=== PATIENT | female | born 1955 | race Caucasian/White ===

== ENCOUNTER 2017-09-08 10:23 | Emergency (ER) | payer BC, OTHER ==
[2017-09-08 10:53] LABS: Bilirubin Small (Negative); Blood, Urine Trace (Negative); Clarity Slightly Cloudy (Clear); Glucose, Urine (Dipstick) Negative (Negative); Leukocyte Negative (Negative); Nitrite Negative (Negative); Protein, Urine (Dipstick) Trace mg/dL (Neg-Trace); Specific Gravity, Urine 1.015 (1.005-1.030); pH, Urine 6.5 (5.0-9.0)
[2017-09-08] MEDS ORDERED: Ondansetron HCl/PF 4 MG/2 ML Vial ONE (11:04)
[2017-09-08] MEDS ORDERED: Famotidine/PF 20 mg/2ml Vial ONE (11:04)
[2017-09-08 11:07] LABS: Band 1 % (5-11); Eosinophils 2 % (0-10); Hemoglobin 13.3 g/dL (12.0-16.0); Lymphocytes 27 % (21-51); MDiff Complete? YES; Mean Corpuscular HGB CONC 32.3 g/dL (32.0-36.0); Mean Corpuscular Hemoglobin 28.5 pg (27.0-31.0); Mean Corpuscular Volume 88.2 fl (81.0-99.0); Mean Platelet Volume 6.1 fL (7.4-10.4); Monocytes 5 % (0-10); Neutrophil 65 % (42-75); PLT Morphology Comment Appears Increased; Platelet Count 495 thou/uL (130-400); RBC Distribution Width 12.2 % (11.5-14.5); RBC Morphology Normal; Red Blood Cell (RBC) Count 4.68 mill/uL (4.20-5.40); White Blood Cell (WBC) Count 11.5 thou/uL (4.8-10.8)
[2017-09-08 11:08] LABS: Bacteria/HPF Rare-Few HPF (None Seen); WBC/HPF 0-3 HPF (0-3)
[2017-09-08 11:11] LABS: ALT (SGPT) 7 U/L (8-55); AST (SGOT) 14 U/L (5-34); Albumin 4.2 g/dL (3.4-4.8); Alkaline Phosphatase 111 U/L (40-150); Anion Gap 17 mmol/L (10-20); BUN (Urea Nitrogen) 8 mg/dL (9.8-20.1); Bilirubin, Total 0.4 mg/dL (0.2-1.2); Calc. Creatinine Clearance 0 mL/min (70-130); Carbon Dioxide 23 mmol/L (23-31); Chloride 103 mmol/L (98-107); Estimated GFR-MDRD 70; Globulin 3.9 g/dL (2.4-3.5); Glucose 104 mg/dL (80-115); Lipase 13 U/L (8-78); Potassium 3.5 mmol/L (3.5-5.1); Protein, Total 8.1 g/dL (6.0-8.3); Sodium 139 mmol/L (136-145)
--- NOTE | 2017-09-08 13:03 | ULT ---
RIGHT UPPER QUADRANT ULTRASOUND: Date: 09/08/17 COMPARISON: None. HISTORY: Abdominal pain, epigastric pain. TECHNIQUE: Multiplanar Moore scale sonographic imaging of the right upper quadrant obtained. FINDINGS: Imaged pancreas is unremarkable. The tail is partially obscured. The common bile duct measures 5-6 mm , within normal limits. No focal liver lesion is evident. The right kidney measures 9.0 cm in craniocaudal dimension and demonstrates no evidence for stone, hy dronephrosis, or mass. The interactive developer reports a negative Ware's sign. No gallbladder wall thickening or pericholecystic f luid. There is an echogenic focus within the gallbladder measuring 4-5 mm suggesting a small, nonshadowing stone, or echogenic sludge ball. IMPRESSION: Subcentimeter echogenic focus within the gallbladder may represent a nonshadowing stone or sludge bal l. There is no sonographic evidence of cholecystitis or biliary dilatation. POS: [facility]
--- NOTE | 2017-09-08 13:28 | CT ---
CT OF THE ABDOMEN AND PELVIS: Date: 09/08/17 COMPARISON: None. HISTORY: Abdominal pain, epigastric pain, with nausea. TECHNIQUE: Serial axial CT imaging is obtained at 5 mm intervals from the lung bases through the pubic symphysis with intravenous and oral contrast. Coronal reformatted imaging obtained. FINDINGS: The imaged lung bases are grossly unremarkable. There is no free intraperitoneal air noted. The liver, spleen, and gallbladder demonstrate an unremarkable CT appearance. The pancreas and adrena l glands appear grossly unremarkable. There is mild bilateral hydronephrosis, which may be on the basis of urinary bladder distention. Kidn eys appear unremarkable otherwise. There is no evidence for bowel inflammatory change or obstruction. The patient appears status post ri ght hemicolectomy. There is a suggestion of possible wall thickening involving the gastric body and proximal gastric ant rum, best seen on axial image 29. No lymphadenopathy is seen within the abdomen or pelvis. No acute osseous abnormality is seen. IMPRESSION: 1. Wall thickening of the distal gastric body and antrum, which may be on the basis of underdistenti on, but an inflammatory/infectious process involving the gastric mucosa is a possibility, as is a gas tric malignancy. Direct visualization is advised. 2. Mild bilateral hydronephrosis, which may be on the basis of urinary bladder distention. Nonemerge nt follow-up renal ultrasound advised. Dr. Sandoval made aware at 1305 hours o 09/08/17. CODE CR. POS: [facility]
== END 2017-09-08 13:52 | disposition home or self-care (01) ==
LOC: SCSER 10:23
DX: N13.2 Hydronephrosis with renal and ureteral calculous obstruction (principal); F17.210 Nicotine dependence, cigarettes, uncomplicated; F41.9 Anxiety disorder, unspecified; Z79.899 Other long term (current) drug therapy
CPT/HCPCS: 74177; 76705; 80053; 81003; 81015; 83690; 85025; 96361; 96374; 96375; J2405; S0028

== ENCOUNTER 2023-01-05 14:24 | Outpatient (CLI) | payer OTHER, MEDICARE | END 2023-01-05 14:25 | disposition home or self-care (01) | LOC: RAD 14:24 | PROVIDERS: ATTEND Internal Medicine Critical Care Medicine | DX: R06.00 Dyspnea, unspecified (principal) | CPT/HCPCS: 71046 ==